=== PATIENT | male | born 1985 | race Caucasian/White ===

== ENCOUNTER 2020-07-28 12:34 | Emergency (ER) | payer SELFPAY ==
[2020-07-28 12:35] VITALS: BP 150/106; PULSE 50; RESP 20; TEMP 36.8; O2SAT 100
--- NOTE | 2020-07-28 12:54 | ED.DENTAL ---
HPI - Dental/Oral General Chief complaint: Dental/Oral Stated complaint: tooth pain Time Seen by Provider: 07/28/20 12:38 Source: patient Mode of arrival: ambulatory Limitations: no limitations History of Present Illness HPI Narrative: This is a 34 year old male that presents to the ER for toothache x 2 weeks. Reports a cracked tooth that has been painful. Reports he has an appointment to see a dentist next week. Denies fever, erythema or edema. MD Complaint: tooth pain Location: Tooth # (20) Related Data Allergies Allergy/AdvReac Type Severity Reaction Status Date / Time No Known Allergies Allergy Unverified 05/24/15 22:31 Review of Systems Review of Systems: Narrative: CONSTITUTIONAL: Denies fever ENT: Reports dentalgia All systems reviewed & are unremarkable except as noted in HPI and below PMFSH Past Medical History Medical History (Updated 07/28/20 @ 12:58 by Lissette Jennings PA-C) No active medical problems Social History Social History (Updated 07/28/20 @ 12:56 by Lissette Jennings PA-C) Substance use: never Exam Narrative: Exam Narrative: GENERAL: Well-appearing, well-nourished, and in no acute distress. HEAD: Normocephalic, atraumatic. EYES: EOMI. ENT: Mucous membranes moist. Oropharynx without tonsillar hypertrophy exudate or other lesions. Tooth number 20 tender to palpation, no surrounding erythema or fluctuance to suggest abscess NECK: Supple. No adenopathy or masses. CHEST: Clear to auscultation. No respiratory distress. No wheezes rales or rhonchi HEART: Regular rate and rhythm. No murmur heard. Normal peripheral pulses. EXTREMITIES: Normal range of motion. No edema. SKIN: Warm, dry, no rash. NEURO: No focal deficits. Alert and oriented x3. PSYCH: Normal mood and affect Course Vital Signs Vital signs: Vital Signs Temperature 98.2 F 07/28/20 12:35 Pulse Rate 50 L 07/28/20 12:35 Respiratory Rate 20 07/28/20 12:35 Blood Pressure 150/106 H 07/28/20 12:35 Pulse Oximetry 100 07/28/20 12:35 Temperature 98.2 F 07/28/20 12:35 Pulse Rate 50 L 07/28/20 12:35 Respiratory Rate 20 07/28/20 12:35 Blood Pressure 150/106 H 07/28/20 12:35 Pulse Oximetry 100 07/28/20 12:35 MDM - Dental/Oral MDM Narrative Medical decision making narrative: Patient presents the emergency department for toothache x2 weeks. He is afebrile and nontoxic-appearing. No surrounding erythema or fluctuance to suggest abscess. Patient replaced on oral antibiotics. Reports he has an appointment to follow-up with a dentist next week. He is stable and felt appropriate for further outpatient evaluation. He was given warnings to return to the ER Critical Care Time Critical Care Time Critical Care Time: No Discharge Plan Discharge Clinical Impression: Toothache Patient Disposition: Home, Self-Care Condition: Stable Instructions: Antibiotic Form, Toothache (ED) Additional Instructions: Return to the Emergency Department if you experience fever >101, increasing swelling and redness of your tooth, or any other symptoms that are concerning to you Take antibiotic as prescribed. Tylenol or Ibuprofen as needed for pain. You can apply a dab of clove oil to a Qtip and apply to the tooth to help numb the area Follow up with your dentist Prescriptions: New amoxicillin-pot clavulanate 875-125 mg tablet 1 tablet PO Q12H 7 Days Qty: 14 RF: 0 Follow-up/Referrals: PHYSICIAN,[facility] [facility] [Primary Care Provider] -
[2020-07-28] MEDS: KETOROLAC (*BKC) 60 MG/2 ML VIAL IM (12:59)
== END 2020-07-28 13:17 | disposition home or self-care (01) ==
PROVIDERS: Emergency Provider Emergency Medicine
DX: K08.89 Other specified disorders of teeth and supporting structures (principal)
CPT/HCPCS: 96372; 99283; J1885

== ENCOUNTER 2020-11-05 13:35 | Emergency (ER) | payer SELFPAY ==
[2020-11-05 13:37] VITALS: BP 128/70; PULSE 78; RESP 20; TEMP 36.3; O2SAT 99
--- NOTE | 2020-11-05 14:51 | ED.GENADULT ---
HPI - General Adult General Chief complaint: Wound/Laceration Stated complaint: puncture l knee Time Seen by Provider: 11/05/20 13:59 Source: patient Mode of arrival: ambulatory Limitations: no limitations History of Present Illness HPI narrative: Patient a 35-year-old male who presents with small laceration along the medial aspect left knee patient notes mild aching pain accidentally cut himself with a straight edge patient on arrival in the room in no distress patient has not taken anything for his symptoms nor does he wish for any pain medication at this time patient notes his tetanus is up-to-date Related Data Home Medications Medication Instructions Recorded Confirmed No Home Medications 11/05/20 11/05/20 Allergies Allergy/AdvReac Type Severity Reaction Status Date / Time No Known Allergies Allergy Unverified 11/05/20 14:30 Review of Systems Review of Systems: All systems reviewed & are unremarkable except as noted in HPI and below PMFSH Past Medical History Medical History No active medical problems Social History Social History Substance use: never Gender identity (if verbalized by the patient): Male Exam Narrative: Exam Narrative: GENERAL: Well-appearing, well-nourished, and in no acute distress. HEAD: Normocephalic, atraumatic. EYES: PERRLA and EOMI. ENT: Nares clear, no rhinorrhea or epistaxis. Mucous membranes moist. EXTREMITIES: Normal range of motion. No edema. 1 cm superficial linear laceration medial aspect left knee SKIN: Warm, dry, no rash. NEURO: No focal deficits. Alert and oriented x3. Neurovascularly intact. Capillary refill less than 2-second PSYCH: Normal mood and affect. Course Course Emergency Course: Wound closed in the emergency department will be discharged home with outpatient follow-up Vital Signs Vital signs: Vital Signs Temperature 97.3 F L 11/05/20 13:37 Pulse Rate 78 11/05/20 13:37 Respiratory Rate 11/05/20 13:37 Blood Pressure 128/70 11/05/20 13:37 Pulse Oximetry 99 11/05/20 13:37 Temperature 97.3 F L 11/05/20 13:37 Pulse Rate 78 11/05/20 13:37 Respiratory Rate 20 11/05/20 13:37 Blood Pressure 128/70 11/05/20 13:37 Pulse Oximetry 99 11/05/20 13:37 Procedures Laceration Laceration 1: Date: 11/05/20 Time: 14:54 Site: lower extremity Side (If applicable): left Size (cm): 1 Description: linear Depth: simple, single layer Pre-repair: wound explored and other (Soap scrub) ====== Skin Level ====== Skin layer closed with: estrella Number of sutures: 2 ====== Subcutaneous Layer ====== ====== Muscle Layer ====== ====== Tendon Layer ====== Dressin x 4 and Coban placed post procedure Medical Decision Making MDM Narrative Medical decision making narrative: Patients injury or pain is consistent with musculoskeletal etiology. No signs of neurological or vascular compromise on exam. Compartments and tisues are soft without signs of compartment syndrome. Pain is felt appropriate for further evaluation on an outpatient basis. Vital Signs Vital Signs: Vital Signs Temperature 97.3 F L 11/05/20 13:37 Pulse Rate 78 11/05/20 13:37 Respiratory Rate 20 11/05/20 13:37 Blood Pressure 128/70 11/05/20 13:37 Pulse Oximetry 99 11/05/20 13:37 Temperature 97.3 F L 11/05/20 13:37 Pulse Rate 78 11/05/20 13:37 Respiratory Rate 20 11/05/20 13:37 Blood Pressure 128/70 11/05/20 13:37 Pulse Oximetry 99 11/05/20 13:37 Discharge Plan Discharge Clinical Impression: Laceration Patient Disposition: Home, Self-Care Condition: Stable Instructions: Antibiotic Form, Laceration (ED) Additional Instructions: Keep wound clean and dry. Do not soak, take baths, or swim until wound is completely
== END 2020-11-05 15:09 | disposition home or self-care (01) ==
LOC: ANHED 15:02
PROVIDERS: Emergency Provider Emergency Medicine
DX: S81.012A Laceration without foreign body, left knee, initial encounter (principal); W27.8XXA Contact with other nonpowered hand tool, initial encounter
CPT/HCPCS: 12001; 99282

== ENCOUNTER 2022-03-20 19:13 | Emergency (ER) | payer OTHER, SELFPAY ==
[2022-03-20 19:47] VITALS: BP 129/60; PULSE 56; RESP 18; TEMP 36.7; O2SAT 98
--- NOTE | 2022-03-20 20:32 | ED.LOWEXIN ---
HPI - Extremity Injury (Lower) General Chief Complaint: Extremity Injury, Lower Stated Complaint: right dee pain Time Seen by Provider: 03/20/22 20:16 Source: patient History of Present Illness HPI Narrative: Patient presents with right dee pain has been present for a day. Describes a burning itchy sensation as well as a red area with overlying dry skin. Patient reports he does [employer] occasionally gets shinsplints but this pain is different than that. Denies any trauma to the area denies falling. The pain and burning are constant radiates up his leg worse with palpation. Denies any fevers chills nausea vomiting or diarrhea. Related Data Allergies Allergy/AdvReac Type Severity Reaction Status Date / Time No Known Allergies Allergy Unverified 03/20/22 19:49 Review of Systems Review of Systems: CONSTITUTIONAL: Denies fever, chills, or sweats. EYES: Denies visual changes, redness, or discharge. ENT: Denies rhinorrhea, congestion, sore throat, or otalgia. CARDIOVASCULAR: Denies chest pain, palpitations, or edema. RESPIRATORY: Denies cough or dyspnea. GASTROINTESTINAL: Denies abdominal pain, nausea, vomiting, or diarrhea. GENITOURINARY: Denies dysuria or hematuria. SKIN: Denies rash or itching. MUSCULOSKELETAL: Denies back pain, or myalgia. NEUROLOGIC: Denies headache, numbness, dizziness, or weakness. PSYCHIATRIC: Denies anxiety or depression. All systems reviewed & are unremarkable except as noted in HPI and below PMFSH Past Medical History Medical History No active medical problems Social History Social History Substance use: never Gender identity (if verbalized by the patient): Male Exam Narrative: GENERAL: Well-appearing, well-nourished, and in no acute distress. HEAD: Normocephalic, atraumatic. EYES: PERRLA and EOMI. ENT: Nares clear, no rhinorrhea or epistaxis. Mucous membranes moist. NECK: Supple. No masses. No JVD EXTREMITIES: Normal range of motion. 2 x 4 area of erythema on the right distal dee there is some overlying dry skin there is no purulent drainage there is multiple open wounds. There is edema warmth and tenderness palpation to the area no focal fluctuance SKIN: Warm, dry, no rash. NEURO: No focal deficits. Alert and oriented x3. PSYCH: Normal mood and affect. Course Vital Signs Vital signs: Vital Signs Temperature 36.7 C 03/20/22 19:47 Pulse Rate 56 L 03/20/22 19:47 Respiratory Rate 18 03/20/22 19:47 Blood Pressure 129/60 03/20/22 19:47 Pulse Oximetry 98 03/20/22 19:47 Oxygen Delivery Room Air 03/20/22 19:47 Temperature 36.7 C 03/20/22 19:47 Pulse Rate 86 03/20/22 21:17 Respiratory Rate 18 03/20/22 21:17 Blood Pressure 129/60 03/20/22 19:47 Pulse Oximetry 98 03/20/22 21:17 Oxygen Delivery Room Air 03/20/22 19:47 MDM - Extremity Injury (Lower) MDM Narrative Medical decision making narrative: H&P as above, vss, pt looks clinically well, exam warmth erythema and tenderness to the right dee, labs/img considered, symptomatic relief available as needed, on reevaluation pt continues to looks clinically well. Suspect cellulitis, dns necrotizing soft tissue infection, fracture, major neurovascular compromise, abscess. plan to tx/monitor as op w/ pcm f/u findings/plan discussed with pt, pt agree/comfortable with plan, return precautions given Discharge Plan Discharge Clinical Impression: Cellulitis Patient Disposition: Home, Self-Care Condition: Improved Instructions: Antibiotic Form Additional Instructions: Please return if your symptoms worsen or fail to improve. If you develop a fever, can not eat/drink anything or if you have any other concerns. Prescriptions: New cephalexin 500 mg capsule 500 mg PO QID 7 Days Qty: 28 0RF Follow-up/Referrals: PHYSICIAN,[facility] [Primary Care Provider] - Time of Dispo
[2022-03-20 21:17] VITALS: PULSE 86; RESP 18; O2SAT 98
== END 2022-03-20 21:18 | disposition home or self-care (01) ==
PROVIDERS: Emergency Provider Emergency Medicine
DX: L03.115 Cellulitis of right lower limb (principal)
CPT/HCPCS: 99283

== ENCOUNTER 2025-02-08 16:27 | Outpatient (CLI) | payer OTHER, SELFPAY ==
--- NOTE | ~2025-02-08 | US_ITS ---
EXAMINATION: US venous doppler LE RT DATE: 02/08/2025 17:04 INDICATION: Edema and pain with erythema TECHNIQUE: Grayscale ultrasound images without and with compression and Doppler ultrasound images of the right lower extremity veins were obtained. COMPARISON: None. FINDINGS: The visualized portions of right common femoral vein, profunda (deep) femoral vein, femoral vein, pop liteal vein, peroneal veins, posterior tibial veins, and greater saphenous vein outflow are patent. IMPRESSION: 1. No deep venous thrombosis within the right lower extremity, as detailed above.. Reviewed, dictated and finalized at location A. IMPRESSION: 1. No deep venous thrombosis within the right lower extremity, as detailed abo ve..
== END 2025-02-08 16:28 | disposition home or self-care (01) ==
PROVIDERS: PCP Internal Medicine; Visit Provider Internal Medicine
DX: M79.89 Other specified soft tissue disorders (principal)
CPT/HCPCS: 93971